=== PATIENT | male | born 1970 | race Hispanic/Latino ===

== ENCOUNTER 2018-06-24 08:09 | Day surgery (SDC) | payer OTHER ==
[2018-06-23 17:39] VITALS: BMI 33.3
--- NOTE | 2018-06-24 11:08 | OP ---
DATE OF SERVICE: 06/24/2018 PROCEDURE: Colonoscopy. PHYSICIAN: Dov Mahajan M.D. ANESTHESIA: Pain medication given by Anesthesiology Department. PREPROCEDURE DIAGNOSIS: Colon screening. POSTPROCEDURE DIAGNOSIS: Normal colon exam. PROCEDURE IN DETAIL: A written consent was obtained prior to procedure. After adequate sedation, a rectal exam was performed and was normal. The endoscope was advanced to the cecum. The quality of t he bowel prep was good. The cecum, ascending colon, hepatic flexure, transverse colon, splenic flexu re, descending colon and rectosigmoid colon all appeared normal. Retroflexion did not show any abnor mality. The patient tolerated the procedure well. ASSESSMENT: Normal colonoscopy. RECOMMENDATION: Repeat colon screening in 10 years.
== END 2018-06-24 11:24 | disposition home or self-care (01) ==
LOC: SDC 08:09
PROVIDERS: ATTEND Internal Medicine Gastroenterology
PROC: 0DJD8ZZ Inspection of Lower Intestinal Tract, Via Natural or Artificial Opening Endoscopic (ICD-10-PCS; principal; 2018-06-24)
DX: Z12.11 Encounter for screening for malignant neoplasm of colon (principal); I10 Essential (primary) hypertension; Z79.82 Long term (current) use of aspirin; Z79.899 Other long term (current) drug therapy

== ENCOUNTER 2019-11-16 20:30 | Outpatient (CLI) | payer OTHER | END 2019-11-16 20:31 | disposition home or self-care (01) | LOC: SLEEPLAB 20:30 | PROVIDERS: ATTEND Physician Assistant | DX: G47.33 Obstructive sleep apnea (adult) (pediatric) (principal); I10 Essential (primary) hypertension | CPT/HCPCS: 95810 ==